=== PATIENT | male | born 1960 | race Caucasian/White ===

== ENCOUNTER 2017-10-30 03:03 | Emergency (ER) | payer BC ==
[2017-10-30 03:14] VITALS: BP 137/73
[2017-10-30] MEDS ORDERED: Albuterol/Ipratropium 3.0-0.5 MG/3 ML Neb Soln NEB ONE (03:37)
--- NOTE | 2017-10-30 03:37 | EDM.PDOC ---
ED HPI GENERAL MEDICAL PROBLEM - General Chief Complaint: Asthma Stated Complaint: ASTHMA PROBLEMS Time Seen by Provider: 10/30/17 03:20 Source of Information: Reports: Patient History Limitations: Reports: No Limitations - History of Present Illness INITIAL COMMENTS - FREE TEXT/NARRATIVE: The patient states that he has a history of asthma, confirmed by pulmonary function test. His [employer] is in [place]; the patient is in [employer] for work. He currently takes albuterol by both MDI and nebulizer, along with Singulair, and an inhaled steroid. He states that he has a chamber and peak flow meter, but that he left both of these at home. He now presents with complaint of dyspnea, cough productive of clear sputum, and wheezing, since 10/28/2017. No recent fever. He had nausea and emesis Saturday night, 10/28/2017, for reasons unclear. He states that he has used his albuterol MDI without a chamber once on Saturday evening, twice yesterday, and 4 times this morning, without significant improvement in his breathing. When I asked him to demonstrate the use of his MDI, he shook the MDI for only a few seconds (not for 1 minute, as recommended) and then put the MDI in his mouth. This is a very poor technique, as less than 2% of the albuterol actually gets down into his lungs. 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: Reports: Home Treatments - Related Data Allergies Allergy/AdvReac Type Severity Reaction Status Date / Time hydrocodone Allergy Itching Verified 10/30/17 03:14 oxycodone HCl Allergy Itching Verified 10/30/17 03:14 [From OxyContin] Home Meds: Home Meds Albuterol Sulfate [Proair Hfa] 2 puff IH DAILY PRN 05/29/16 [History] Albuterol/Ipratropium [DuoNeb 3.0-0.5 MG/3 ML] 3 ml NEB Q6HRRT #60 neb 05/29/16 [Rx] predniSONE [Prednisone] 20 mg PO QAM #5 tablet 10/30/17 [Rx] Past Medical History HEENT History: Reports: Impaired Vision Other HEENT History: Wears glasses Respiratory History: Reports: Asthma (Confirmed by PFT) Gastrointestinal History: Reports: Cholelithiasis Endocrine/Metabolic History: Reports: Obesity/BMI 30+ - Past Surgical History HEENT Surgical History: Reports: Tonsillectomy Musculoskeletal Surgical History: Reports: Amputation (Partial, 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 ) Social & Family History - Family History Family Medical History: Noncontributory - Tobacco Use Smoking Status *Q: Former Smoker Years of Tobacco use: 32 Packs/Tins Daily: 1.5 Month/Year Tobacco Last Used: Quit 09/2009 - Caffeine Use Caffeine Use: Reports: Coffee - Alcohol Use Alcohol Use History: Yes Alcohol Use Frequency: Socially - Recreational Drug Use Recreational Drug Use: No - Living Situation & Occupation Living situation: Reports: , with Spouse Occupation: Employed ([employer]) ED ROS GENERAL - Review of Systems Review Of Systems: ROS reveals no pertinent complaints other than HPI. ED EXAM, GENERAL - Physical Exam Exam: See Below Exam Limited By: No Limitations General Appearance: Alert, WD/WN, No Apparent Distress Eye Exam: Bilateral Eye: Normal Inspection Ears: Normal External Exam, Hearing Grossly Normal Nose: Normal Inspection, No Blood Throat/Mouth: Normal Inspection, Normal Lips, Normal Voice, No Airway Compromise Head: Atraumatic, Normocephalic Neck: Normal Inspection, Full Range of Motion Respiratory/Chest: No Respiratory Distress, No Accessory Muscle Use, Decreased Breath Sounds, Wheezing (faint, expiratory). No: Crackles, Rhonchi, Prolonged Expiration Cardiovascular: Normal Peripheral Pulses, Regular Rate, Rhythm, No Edema, No Gallop, No JVD, No Murmur, No Rub Peripheral Pulses: 4+: Radial (L), Radial (R) GI/Abdominal: Normal Bowel Sounds, Soft, Non-Tender, No Organomegaly, No Distention, No Abnormal Bruit, No Mass, Other (Obese) (Male) Exam: Deferred Rectal (Males) Exam: Deferred Back Exam: Normal Inspection, Full Range of Motion, NT Extremities: Normal Inspection, Normal Range of Motion, No Pedal Edema, Normal Capillary Refill Neurological: Alert, Oriented, Normal Cognition, No Motor/Sensory Deficits Psychiatric: Normal Affect Skin Exam: Warm, Dry, Intact, Normal Color, No Rash Course - Vital Signs Last Recorded V/S: Last Vital Signs Temp 36.7 C 10/30/17 03:10 Pulse 90 10/30/17 03:10 Resp 24 H 10/30/17 03:10 BP 137/73 10/30/17 03:10 Pulse Ox 96 10/30/17 03:40 - Orders/Labs/Meds Orders: Active Orders 24 hr Category Date Time Status RT Aerosol Therapy [RC] ASDIRECTED Care 10/30/17 03:37 Active RT Aerosol Therapy [RC] ASDIRECTED Care 10/30/17 04:03 Active RT Peak Flow Measurement [RC] ASDIRECTED Care 10/30/17 03:29 Active Meds: Medications Discontinued Medications Generic Name Dose Route Start Last Admin Trade Name Freq PRN Reason Stop Dose Admin Albuterol 2.5 mg 10/30/17 04:03 10/30/17 04:08 Proventil Neb Soln NEB 10/30/17 04:04 2.5 mg ONETIME ONE Administration Albuterol/Ipratropium 3 ml 10/30/17 03:37 10/30/17 03:42 Duoneb 3.0-0.5 Mg/3 Ml NEB 10/30/17 03:38 3 ml ONETIME ONE Administration Prednisone 60 mg 10/30/17 04:03 10/30/17 04:17 Prednisone PO 10/30/17 04:04 60 mg ONETIME STA Administration - Re-Assessments/Exams Free Text/Narrative Re-Assessment/Exam: 10/30/17 03:39 Baseline peak flow is around 300. The patient's personal green zone is at 400. I have ordered a DuoNeb. 10/30/17 04:04 Following a DuoNeb, the patient's peak flow was 350. On auscultation, he has increased wheezing, likely because of increased overall air movement. I have ordered an albuterol neb and 60 mg prednisone. 10/30/17 04:25 After the albuterol neb, the patient's peak flow is now up to 400. His lungs have only a few squeaks on auscultation. I will discharge him home with a prescription for 5 days of prednisone. Patient states that he'll be returning home to [place] tomorrow night. Departure - Departure Time of Disposition: 04:26 Disposition: Home, Self-Care 01 Condition: Good Clinical Impression: Asthma exacerbation - Discharge Information Referrals: PCP,Not In Area [Primary Care Provider] - Forms: ED Department Discharge Additional Instructions: You were seen in the emergency room for shortness of breath, wheezing, and coughing. Based on your history and physical examination, you were suffering from an asthma exacerbation. You received a DuoNeb, and albuterol neb, and oral prednisone in the ER. Your symptoms significantly improved. You should use your albuterol inhaler with a space chamber if you are having shortness of breath with wheezing, with or without a cough, and your peak flow is in the yellow or red zone. Make sure that you shake the inhaler for 1 minute prior to use. A nebulizer is not as good as an inhaler with a space chamber, but it is easier. We recommend that you check your peak flow twice a week. If you are feeling short of breath, but your peak flow is in the green zone, you should NOT take albuterol. If you find that your peak flow is in the yellow zone, even if you are feeling fine, you should contact your doctor for advice, as this indicates an impending asthma exacerbation. If your peak flow is in the red zone, you should go to an ER for evaluation. A [facility] for prednisone has [facility] to the [facility], [address] [place], [place] [address] located across the [address] from [facility]. Take one tablet every morning, starting tomorrow morning, , 10/31/2017, as prescribed. Finish the entire 5-day prescription. If any other problems, please do not hesitate to return to the ER. - My Orders Last 24 Hours: My Active Orders 10/30/17 03:29 RT Peak Flow Measurement [RC] ASDIRECTED 10/30/17 03:37 RT Aerosol Therapy [RC] ASDIRECTED 10/30/17 04:03 RT Aerosol Therapy [RC] ASDIRECTED - Assessment/Plan Last 24 Hours: My Active Orders 10/30/17 03:29 RT Peak Flow Measurement [RC] ASDIRECTED 10/30/17 03:37 RT Aerosol Therapy [RC] ASDIRECTED 10/30/17 04:03 RT Aerosol Therapy [RC] ASDIRECTED
[2017-10-30] MEDS ORDERED: predniSONE 20 MG Tab PO STA (04:03)
[2017-10-30] MEDS ORDERED: Albuterol 0.083% 2.5 MG/3 ML Neb Soln NEB ONE (04:03)
== END 2017-10-30 04:39 | disposition home or self-care (01) ==
LOC: JD.ED 03:03
DX: J45.901 Unspecified asthma with (acute) exacerbation (principal); Z88.5 Allergy status to narcotic agent; Z87.891 Personal history of nicotine dependence
CPT/HCPCS: 94640; 99285; A9270; 99283

== ENCOUNTER 2022-01-11 13:53 | Emergency (ER) | payer BC ==
[2022-01-11] MEDS ORDERED: Sodium Chloride 0.9% 10 ML Syringe FLUSH PRN ×2 (14:15→15:23)
[2022-01-11 14:42] LABS: CORONAVIRUS COVID-19 NAA NEGATIVE (NEGATIVE)
[2022-01-11] MEDS ORDERED: Iopamidol 755 Mg/ML 100 ML Bottle IVPUSH ONE (15:23)
[2022-01-11] MEDS ORDERED: Sodium Chloride 0.9% 45 ML IV SCH (15:30)
[2022-01-11 17:01] VITALS: BP 135/75; PULSE 83
== END 2022-01-11 17:02 | disposition home or self-care (01) ==
LOC: JD.ED 13:53
DX: J43.9 Emphysema, unspecified (principal); J45.909 Unspecified asthma, uncomplicated; E66.9 Obesity, unspecified; Z68.37 Body mass index [BMI] 37.0-37.9, adult; Z88.5 Allergy status to narcotic agent; Z79.899 Other long term (current) drug therapy; Z87.891 Personal history of nicotine dependence; Z20.822 Contact with and (suspected) exposure to COVID-19
CPT/HCPCS: 0241U; 36415; 71045; 71275; 80053; 84484; 85025; 85379; 93005; 96360; 99285; J3490; Q9967